=== PATIENT | female | born 1960 | race Caucasian/White ===

== ENCOUNTER 2017-08-31 15:35 | Emergency (ER) | payer SELFPAY ==
[~2017-08-31] VITALS: Ht 167.6 cm; Wt 150.0 kg
[2017-08-31 15:39] VITALS: BP 145/87; PULSE 72; RESP 16; TEMP 98.4; O2SAT 99
[2017-08-31] MEDS ORDERED: [UNRECOGNIZED DRUG - OTHER] (16:06)
[2017-08-31] MEDS ORDERED: CYCL5TAB PO (16:38)
[2017-08-31] MEDS ORDERED: NAPR500T2 PO (16:38)
--- NOTE | 2017-08-31 16:39 | PD ---
HPI . Fall Chief Complaint: Fall Time Seen by Provider: 16:03 Travel History International Travel<30 days: No Contact w/Intl Traveler<30days: No Traveled to known affect area: No History of Present Illness HPI 57-year-old female presents to emergency room for evaluation of a fall that she [place] the movie theater approximately one hour ago. Patient was trying to step down to get into the aisle of seats and misstepped and fell backwards hitting her left shoulder and posterior aspect of her head. Patient denies losing consciousness. Patient denies any major medical history outside of osteoarthritis. Patient is not on any blood thinners. Patient is ambulatory from triage. PFS Past Medical History Arthritis: Yes (osteo to knees) ?: Not Past Surgical History Appendectomy: Yes Cholecystectomy: Yes Hysterectomy: Yes Social History Alcohol Use: Yes Tobacco Use: No Substance Use: No Allergies-Medications (Allergen,Severity, Reaction): Coded Allergies: Iodinated Contrast- Oral and IV Dye (Verified Allergy, Severe, red rash swelling , 08/31/17) Penicillins (Verified Allergy, Unknown, 08/31/17) Reported Meds & Prescriptions Reported Meds & Active Scripts Active Naproxen 500 Mg Tab 500 Mg PO BID Flexeril (Cyclobenzaprine HCl) 5 Mg Tab 5 Mg PO TID Reported Sulindac 150 Mg Tab 150 Mg PO BID Review of Systems Except as stated in HPI: all other systems reviewed are Neg Physical Exam Narrative GENERAL: Well-nourished, well-developed 57-year-old female patient in no acute distress. Nontoxic appearing. SKIN: Focused skin assessment warm/dry. HEAD: Normocephalic. Atraumatic. NEUROLOGICAL: Awake and alert. Cranial nerves II through XII intact. Motor and sensory grossly within normal limits. Five out of 5 muscle strength in all muscle groups. Normal speech. EYES: PERRLA demonstrated bilaterally. No scleral icterus. No injection or drainage. NECK: Supple, trachea midline. No JVD or lymphadenopathy. CARDIOVASCULAR: Regular rate and rhythm without murmurs, gallops, or rubs. RESPIRATORY: Breath sounds equal bilaterally. No accessory muscle use. GASTROINTESTINAL: Abdomen soft, non-tender, nondistended. MUSCULOSKELETAL: Full range of motion noted in bilateral upper and lower extremities. No obvious deformity, ecchymosis, erythema, cyanosis, or edema. BACK: Nontender without obvious deformity. No CVA tenderness. Data Data Last Documented VS Vital Signs Date Time Temp Pulse Resp B/P (MAP) Pulse Ox O2 Delivery O2 Flow Rate FiO2 08/31/17 17:36 08/31/17 15:39 98.4 72 16 99 Orders Orders Ketorolac Inj (Toradol Inj) (08/31/17 16:45) Orphenadrine Inj (Norflex Inj) (08/31/17 16:45) Ed Discharge Order (08/31/17 16:53) [facility] Medical Decision Making Medical Screen Exam Complete: Yes Emergency Medical Condition: Yes Differential Diagnosis Differential diagnoses include but not limited to contusion, fall, head injury Narrative Course 57-year-old female presents emergency department for evaluation after she fell earlier at the movie theater. And states she had her left shoulder and head but denies losing consciousness and is not on any blood thinners. He shows no neuro deficits, no obvious deformity, ecchymosis, erythema, cyanosis or signs of trauma. He shows full range of motion of the lateral upper and lower extremities. Patient has no midline spinal tenderness and full range of motion of the neck without pain. Using [place] head CT the patient is excluded from needing a CT of the brain. Patient will be treated with IM injection of Toradol and Norflex for muscular strain and pain from falling and discharged home with a prescription for Flexeril and naproxen and instructions for supportive care such as using a heating pad or ice pack for pain management. Patient stable for discharge and discharged home. Diagnosis Primary Impression: Fall Qualified Codes: W19.XXXA - Unspecified fall, initial encounter Referrals: Primary Care Physician Patient Instructions: Contusion in Adults (ED), Fall Prevention (ED), General Instructions Additional Instructions: Please return to emergency department if your symptoms return or worsen. Follow up with your primary care provider. Take medications as prescribed. Use heating pads or ice packs to help with pain management. Med/Other Pt SpecificInfo: Prescription(s) given Scripts Naproxen (Naproxen) 500 Mg Tab 500 MG PO BID, #6 TAB 0 Refills Prov: Lianne Duckworth 08/31/17 Cyclobenzaprine (Flexeril) 5 Mg Tab 5 MG PO TID for Muscle Spasm, #9 TAB 0 Refills Prov: GcuciLianne vee 08/31/17 Disposition: 01 DISCHARGE HOME Condition: Stable Lianne Duckworth Aug 31, 2017 16:39
[2017-08-31] MEDS ORDERED: SULI150T PO (16:41)
[2017-08-31] MEDS ORDERED: ORPHENADRINE INJ 60 MG/2 ML AMP IM ONE (16:45)
[2017-08-31] MEDS ORDERED: KETOROLAC TROMETHAMINE 60 MG/2 ML (IM) VIAL IM ONE (16:45)
== END 2017-08-31 17:37 | disposition home or self-care (01) ==
LOC: NEPD 15:35
DX: M25.512 Pain in left shoulder (principal); M17.9 Osteoarthritis of knee, unspecified; W18.30XA Fall on same level, unspecified, initial encounter; Y92.26 Movie house or cinema as the place of occurrence of the external cause; Z88.0 Allergy status to penicillin
CPT/HCPCS: 96372; 99284; J1885; J2360

== ENCOUNTER 2017-09-02 11:28 | Emergency (ER) | payer SELFPAY ==
[~2017-09-02] VITALS: Ht 167.6 cm; Wt 150.0 kg
[~2017-09-02 11:28] MED LIST: CYCL5TAB PO; NAPR500T2 PO; SULI150T PO; [UNRECOGNIZED DRUG - OTHER]
[2017-09-02 11:29] VITALS: BP 170/90; PULSE 62; RESP 18; TEMP 98; O2SAT 99
--- NOTE | 2017-09-02 12:57 | RADRPT ---
EXAM DATE/TIME: 09/02/2017 12:35 [facility] COMPARISON: No previous studies available for comparison. INDICATIONS : Left ankle pain, and foot pain from fall on 08/31/17 MEDICAL HISTORY : Osteoarthritis. SURGICAL HISTORY : None. ENCOUNTER: Initial ACUITY: 3 days PAIN SCORE: 8/10 LOCATION: Left ankle FINDINGS: Three view exam was performed of the left ankle. The bony structures are in normal alignment. No ev idence of fracture, dislocation, or soft tissue swelling. The ankle mortise is intact. Small retro- and plantar calcaneal spurs. No radiopaque foreign bodies are seen. Bony mineralization is normal. CONCLUSION: The osseous structures about the ankle are grossly intact. Carmine Nesbitt MD on September 02, 2017 at 12:55 Board Certified Radiologist. This report was verified electronically.
--- NOTE | 2017-09-02 12:57 | RADRPT ---
EXAM DATE/TIME: 09/02/2017 12:38 [facility] COMPARISON: No previous studies available for comparison. INDICATIONS : Left foot pain, post fall on 08/31/17 MEDICAL HISTORY : Osteoarthritis. SURGICAL HISTORY : None. ENCOUNTER: Initial ACUITY: 3 days PAIN SCORE: 7/10 LOCATION: Left dorsal foot FINDINGS: Three view examination of the left foot demonstrates no soft tissue swelling, dislocation, or fractur e. The tarsal bones appear intact. The interphalangeal and metatarsophalangeal joints are intact. The calcaneus is intact. Bony mineralization is normal. CONCLUSION: No evidence of recent injury. Carmine Nesbitt MD on September 02, 2017 at 12:55 Board Certified Radiologist. This report was verified electronically.
--- NOTE | 2017-09-02 13:52 | PD ---
HPI . left ankle/foot pain Chief Complaint: Pain: Acute or Chronic Time Seen by Provider: 12:13 Travel History International Travel<30 days: No Contact w/Intl Traveler<30days: No Traveled to known affect area: No History of Present Illness HPI 57-year-old female patient in the emergency department for evaluation of left foot and ankle pain. She was evaluated at our facility 2 days ago after falling at a movie theater. Patient states she was concerned about her head and shoulder at the time and didn't realize her foot was painful. Her foot has been painful for the following days after the fall. Patient is ambulatory. Mild edema noted to the left ankle. Patient is morbidly obese and ankles are large at baseline. PFSH Past Medical History Arthritis: Yes (osteo to knees) ?: Not Past Surgical History Appendectomy: Yes Cholecystectomy: Yes Hysterectomy: Yes Social History Alcohol Use: Yes Tobacco Use: No Substance Use: No Allergies-Medications (Allergen,Severity, Reaction): Coded Allergies: Iodinated Contrast- Oral and IV Dye (Verified Allergy, Severe, red rash swelling , 09/02/17) Penicillins (Verified Allergy, Unknown, 09/02/17) Reported Meds & Prescriptions Reported Meds & Active Scripts Active Naproxen 500 Mg Tab 500 Mg PO BID Flexeril (Cyclobenzaprine HCl) 5 Mg Tab 5 Mg PO TID Reported Sulindac 150 Mg Tab 150 Mg PO BID Review of Systems Except as stated in HPI: all other systems reviewed are Neg Physical Exam Narrative GENERAL: Well-nourished, well-developed 57 year old female patient in no acute distress. Nontoxic appearing. SKIN: Focused skin assessment warm/dry. HEAD: Normocephalic. Atraumatic. EYES: No scleral icterus. No injection or drainage. NECK: Supple, trachea midline. No JVD or lymphadenopathy. CARDIOVASCULAR: Regular rate and rhythm without murmurs, gallops, or rubs. Pedal pulses +2 bilaterally. RESPIRATORY: Breath sounds equal bilaterally. No accessory muscle use. GASTROINTESTINAL: Abdomen soft, non-tender, nondistended. MUSCULOSKELETAL: Mild left ankle edema. No obvious deformity, ecchymosis, cyanosis, or erythema. BACK: Nontender without obvious deformity. No CVA tenderness. Data Data Last Documented VS Vital Signs Date Time Temp Pulse Resp B/P (MAP) Pulse Ox O2 Delivery O2 Flow Rate FiO2 09/02/17 14:00 09/02/17 11:29 98.0 62 18 99 Orders Orders Ankle, Complete ([id number]) (09/02/17 12:19) Foot, Complete ([id number]) (09/02/17 12:19) Ice/Cold Pack (09/02/17 12:19) Splint Or Brace Apply/Monitor (09/02/17 13:43) Ed Discharge Order (09/02/17 13:55) [facility] Medical Decision Making Medical Screen Exam Complete: Yes Emergency Medical Condition: Yes Differential Diagnosis Differential diagnoses include but are not limited to fracture, sprain, contusion Narrative Course 57-year-old female presents emergency department for evaluation of left ankle and foot pain after falling 2 days ago. Patient is been ambulatory of the left foot. Mild edema noted around the ankle. Patient is morbidly obese and ankles are large at baseline. X-ray of the foot and ankle ordered and pending. Both are unremarkable. Rashad wrap applied to the left ankle. Patient will be discharged home with rice therapy instructions and instructions to follow up with her primary care return the emergency Department with any worsening condition. Patient states she doesn't want any crutches. Diagnosis Primary Impression: Left ankle sprain Qualified Codes: S93.402A - Sprain of unspecified ligament of left ankle, initial encounter Referrals: Primary Care Physician Patient Instructions: Ankle Sprain (ED), General Instructions Additional Instructions: Please return to emergency department if your symptoms return or worsen. Follow up with your primary care provider. Rice therapy to left ankle, rest, ice, Rashad wrap with activity and elevated with resting. Disposition: 01 DISCHARGE HOME Condition: Stable Lianne Duckworthpascale DURAN Sep 02, 2017 13:52
== END 2017-09-02 14:45 | disposition home or self-care (01) ==
LOC: NEPD 11:28
DX: S93.402A Sprain of unspecified ligament of left ankle, initial encounter (principal); E66.01 Morbid (severe) obesity due to excess calories; W19.XXXA Unspecified fall, initial encounter; Y92.254 Theater (live) as the place of occurrence of the external cause
CPT/HCPCS: 73610; 73630; 99284